=== PATIENT | female | born 1960 | race Caucasian/White ===

== ENCOUNTER → 2017-09-15 | Outpatient (CLI) | payer BC ==
--- NOTE | 2017-09-16 13:44 | MM ---
Reason for exam: screening (asymptomatic). Last mammogram was performed 1 year and 8 months ago. History: Patient is postmenopausal. Physical Findings: A clinical breast exam by your physician is recommended on an annual basis and results should be correlated with mammographic findings. MG Screening Mammo w CAD Bilateral CC and MLO view(s) were taken. Prior study comparison: January 31, 2016, bilateral MG screening mammo w CAD. January 25, 2015, bilateral MG screening mammo w CAD. The breast tissue is heterogeneously dense. This may lower the sensitivity of mammography. A couple focal asymmetries centrally left breast and laterally appear more defined. ASSESSMENT: Incomplete: need additional imaging evaluation, BI-RAD 0 RECOMMENDATION: Special view mammogram of the left breast. If lesion persists on supplemental views, image directed ultrasound is recommended. [facility] will attempt to contact patient to return for supplemental views and ultrasound if indicated.
== END | disposition home or self-care (01) ==
LOC: RADMAMWWP 14:39
PROVIDERS: ATTEND Family Medicine
DX: Z12.31 Encounter for screening mammogram for malignant neoplasm of breast (principal)
CPT/HCPCS: 77067

== ENCOUNTER → 2017-10-29 | Outpatient (CLI) | payer BC ==
--- NOTE | 2017-10-29 14:32 | MM ---
Reason for exam: additional evaluation requested from abnormal screening. Last mammogram was performed 1 month ago. History: Patient is postmenopausal. Physical Findings: Nurse did not find any significant physical abnormalities on exam. MG Work Up Mamm w CAD LT Spot compression CC, spot compression MLO, and LM view(s) were taken of the left breast. Prior study comparison: September 15, 2017, bilateral MG screening mammo w CAD. January 31, 2016, bilateral MG screening mammo w CAD. The breast tissue is heterogeneously dense. This may lower the sensitivity of mammography. Tissue disperses on compression. There may be some underlying chronic nodularity. These results were verbally communicated with the patient and result sheet given to the patient on 10/29/17. ASSESSMENT: Probably benign, BI-RAD 3 RECOMMENDATION: Follow-up diagnostic mammogram of the left breast in 6 months.
== END | disposition home or self-care (01) ==
LOC: RADMAMWWP 09:36
PROVIDERS: ATTEND Family Medicine
DX: R92.8 Other abnormal and inconclusive findings on diagnostic imaging of breast (principal)
CPT/HCPCS: 77065

== ENCOUNTER → 2018-09-20 | Outpatient (CLI) | payer BC ==
--- NOTE | 2018-09-21 10:16 | MM ---
Reason for exam: additional evaluation requested from prior study. Last mammogram was performed 11 months ago. History: Patient is postmenopausal. Physical Findings: Nurse did not find any significant physical abnormalities on exam. MG 3D Diag Mammo W/Cad KENDRA Bilateral CC and MLO view(s) were taken. Prior study comparison: October 29, 2017, left breast MG work up mamm w CAD LT. September 15, 2017, bilateral MG screening mammo w CAD. The breast tissue is heterogeneously dense. This may lower the sensitivity of mammography. No significant new finding when compared with prior studies. ASSESSMENT: Benign, BI-RAD 2 RECOMMENDATION: Routine screening mammogram of both breasts in 1 year.
== END | disposition home or self-care (01) ==
LOC: RADMAMWWP 13:06
PROVIDERS: ATTEND Family Medicine
DX: R92.8 Other abnormal and inconclusive findings on diagnostic imaging of breast (principal)
CPT/HCPCS: 77062; 77066

== ENCOUNTER → 2020-12-24 | Outpatient (CLI) | payer BC ==
--- NOTE | 2020-12-24 16:08 | BD ---
EXAMINATION TYPE: Axial Bone Density DATE OF EXAM: 12/24/2020 COMPARISON: NONE CLINICAL HISTORY: Z78.0 POST MENOPAUSAL Height: 5 FT 5 IN Weight: 155 FRAX RISK QUESTIONS: Alcohol (3 or more units per day): NO Family History (Parent hip fracture): NO Glucocorticoids (More than 3mos): NO (Ex: prednisone, prednisolone, methylprednisolone, dexamethasone, and hydrocortisone). History of Fracture in Adulthood: NO Secondary Osteoporosis: 1. Type 1 Diabetes: NO 2. Hyperthyroidism: NO 3. Menopause before 45: AROUND [age] 4. Malnutrition: NO 5. Chronic liver disease: NO Rheumatoid Arthritis: NOT DIAGNOSED Current Tobacco Use: NO RISK FACTORS HISTORY OF: Surgery to Spine/Hip(right/left)/Wrist (right/left): NO Family History of Osteoporosis: NO Active: YES Diet low in dairy products/other sources of calcium: NO Postmenopausal woman: AGE 41-44 Take estrogen and/or progesterone medications: NO Lost more than 2 inches in height since high school: YES MEDICATIONS: Additional Medications: BLOOD PRESSURE MEDS, SIMVASTATAN, Additional History: EXAM MEASUREMENTS: Bone mineral densitometry was performed using the [employer] System. Bone mineral density as measured about the Lumbar spine is: ----- L1-L4(G/cm2): 1.005 T Score Values are as follows: ----- L2: -1.5 ----- L3: -1.3 ----- L4: -1.3 ----- L1-L4: -1.5 Bone mineral density has: DECREASED -2.9 % since study of: 2012 Bone mineral density about the R hip (g/cm2): 0.731 Bone mineral density about the L hip (g/cm2): 0.770 T Score values are as follows: -----R Neck: -2.2 -----L Neck: -1.9 -----R Total: -1.6 -----L Total: -1.2 Bone mineral density has: DECREASED -5.7 % since study of: 2012 IMPRESSION: Osteopenia (T Score between -2.5 and -1). There is slightly increased risk of fracture and the patient may be considered for treatment. Re-Screen 2-5 years. NOTE: T-SCORE=SD OF THE YOUNG ADULT MEAN.
--- NOTE | 2020-12-26 10:34 | MM ---
Reason for exam: screening (asymptomatic). Last mammogram was performed 2 years and 3 months ago. History: Patient is postmenopausal. Physical Findings: A clinical breast exam by your physician is recommended on an annual basis and results should be correlated with mammographic findings. MG Screening Mammo w CAD Bilateral CC and MLO view(s) were taken. Prior study comparison: September 20, 2018, bilateral MG 3d diag mammo w/cad KENDRA. September 15, 2017, bilateral MG screening mammo w CAD. The breast tissue is heterogeneously dense. This may lower the sensitivity of mammography. Finding: There are fine, grouped/clustered calcifications in the 12 o'clock anterior position of the left breast. There is a chronic nodularity bilaterally. New finding since September 20, 2018 and September 15, 2017. ASSESSMENT: Incomplete: need additional imaging evaluation, BI-RAD 0 RECOMMENDATION: Special view mammogram of the left breast. [facility] will attempt to contact patient to return for supplemental views.
== END | disposition home or self-care (01) ==
LOC: RADMAMWWP 12:37
PROVIDERS: ATTEND Family Medicine
DX: Z12.31 Encounter for screening mammogram for malignant neoplasm of breast (principal); M85.89 Other specified disorders of bone density and structure, multiple sites; Z78.0 Asymptomatic menopausal state
CPT/HCPCS: 77067; 77080

== ENCOUNTER → 2021-01-15 | Outpatient (CLI) | payer BC ==
--- NOTE | 2021-01-16 09:45 | MM ---
Reason for exam: additional evaluation requested from abnormal screening. Last mammogram was performed 1 month ago. History: Patient is postmenopausal. Physical Findings: Nurse did not find any significant physical abnormalities on exam. MG Work Up Mamm w CAD LT CC with magnification, LM with magnification, and LM view(s) were taken of the left breast. Prior study comparison: December 24, 2020, bilateral MG screening mammo w CAD. September 20, 2018, bilateral MG 3d diag mammo w/cad KENDRA. Indeterminate calcifications adjacent to a large calcification upper central left breast. These results were verbally communicated with the patient and result sheet given to the patient on 01/15/21. ASSESSMENT: Suspicious, BI-RAD 4 RECOMMENDATION: Stereotactic core biopsy of the left breast. Called office with mammographic findings and has scheduled an appointment for the patient for 03/15/21 at 10:[address] Mosley. Biopsy scheduled for 03/28/21 at 8:00. PRELIMINARY REPORT CALLED AND FAXED TO DR. MOSLEY ON 01/16/21.
== END | disposition home or self-care (01) ==
LOC: RADMAMWWP 10:26
PROVIDERS: ATTEND Family Medicine
DX: R92.1 Mammographic calcification found on diagnostic imaging of breast (principal)
CPT/HCPCS: 77065

== ENCOUNTER → 2021-03-15 | Outpatient (CLI) | payer BC ==
[2021-03-15 10:21] VITALS: BP 129/86; PULSE 89; RESP 16; TEMP 98.1
--- NOTE | 2021-03-15 10:56 | P.GSHP ---
History of Present Illness H&P Date: 03/15/21 Chief Complaint: abnormal left breast mammogram Rosaline is a 60 year old white female seen in consultation for Dr. Frost with a mammographic abnormality of her left breast. She had a bilateral screening mammogram on , this revealed an area of fine group calcific ations in the 12 o'clock position of the left breast. She had a diagnostic mammogram then performed on 1120 321. This revealed indeterminate calcifications adjacent to a large calcification upper central left breast. She does not feel anything of concern in either breast. Has not had any surgery,,, or infection in either breast. She is not complaining of any nipple discharge or skin changes. Caffeine: 2 cups coffee/day nicotine: second hand smoke, not smoke in the house chocolate: occasional BCP: 2 years, stopped 40 years ago hormones: none Family history: maternal grandfather: colon cancer father: skin cancer Hormonal History: menarche: 12 , age at first : 21, breast fed: yes menopause: 46 BCP: 2 years in past hormones: none Surgical History: angioplasty ( baby aspirin daily) Medical History: anxiety coronary artery disease HTN Social History: nicotine: none alcohol: beer weekly drugs: none - Constitutional Constitutional: Reports sweats, Denies chills - EENT Eyes: bilateral dry eye, denies blurred vision, denies pain Ears: bilateral: tinnitus, deny: decreased hearing Ears, nose, mouth and throat: Denies headache, Denies sore throat - Breasts Breasts: bilateral: as per HPI - Cardiovascular Comment: See bus boy every 6 months Cardiovascular: Reports as per HPI, Denies chest pain, Denies shortness of breath - Respiratory Respiratory: Reports cough - Gastrointestinal Gastrointestinal: Denies abdominal pain, Denies diarrhea, Denies nausea, Denies vomiting - Genitourinary (Female) Genitourinary: Denies dysuria, Denies hematuria - Menstruation Menstruation: Reports postmenopausal - Musculoskeletal Comment: back pain - Integumentary Integumentary: Denies pruritus, Denies rash - Neurological Neurological: Reports numbness, Denies weakness - Psychiatric Psychiatric: Reports anxiety - Endocrine Endocrine: Denies fatigue, Denies weight change - Hematologic/Lymphatic Hematologic/Lymphatic: Reports as per HPI - Allergic/Immunologic Allergic/Immunologic: Reports as per HPI Past Medical History Past Medical History: Hyperlipidemia, Hypertension History of Any Multi-Drug Resistant Organisms: None Reported Past Surgical History: Heart Catheterization Additional Past Surgical History / Comment(s): angioplasty-2016 Past Anesthesia/Blood Transfusion Reactions: No Reported Reaction Past Psychological History: Anxiety, Depression Smoking Status: Former smoker Past Alcohol Use History: Daily Past Drug Use History: None Reported Medications and Allergies Home Medications Medication Instructions Recorded Confirmed Type ALPRAZolam [Xanax] 0.25 mg PO DIRECTED PRN 03/28/15 03/15/21 History Benazepril HCl 40 mg PO DAILY 03/28/15 04/01/15 History Multivitamins, Thera [Multivitamin] 1 tab PO DAILY 03/28/15 03/15/21 History Simvastatin [Zocor] 20 mg PO DAILY 03/28/15 03/15/21 History Aspirin 81 mg PO DAILY 03/15/21 03/15/21 History Atenolol/Chlorthalidone 1 tab PO DAILY 03/15/21 03/15/21 History [Atenolol/Chlorthalidone 50-25] Benazepril HCl 40 mg PO DAILY 03/15/21 03/15/21 History [place]-3 Fatty Acids [[place]-3] 1,000 mg PO DAILY 03/15/21 03/15/21 History Vit C/E/Zn/Coppr/Lutein/Zeaxan 1 cap PO DAILY 03/15/21 03/15/21 History [Preservision Areds 2 Softgel] Allergies Allergy/AdvReac Type Severity Reaction Status Date / Time No Known Allergies Allergy Verified 03/15/21 10:08 Surgical - Exam Vital Signs Temp Pulse Resp BP 98.1 F 89 16 129/86 03/15/21 10:15 03/15/21 10:15 03/15/21 10:15 03/15/21 10:15 BMI 24.5 - General no distress - Eyes normal ocular movement - Neck trachea midline - Respiratory normal respiratory effort, clear to auscultation - Cardiovascular Rhythm: regular Heart Sounds: normal: S1, S2 - Abdomen Abdomen: soft - Integumentary normal turgor - Neurologic no disoriented, no combative - Musculoskeletal normal gait - Psychiatric oriented to time, oriented to person, oriented to place, speech is normal, memory intact Breast Exam: BRA: 38B inspection: Bilateral grade 2/3 ptosis Palpation: Right breast: Multiple positional exam fibrocystic changes no dominant masses or nodules of concern Axilla: No adenopathy of concern Left breast: Multi-positional exam fibrocystic changes no dominant masses or nodules of concern Left axilla: No adenopathy of concern Results Mammogram reviewed with Dr. Dang from radiology Assessment and Plan Assessment: Impression: Fibrocystic breast changes Radiographic abnormality left breast Hypertension Coronary artery disease follows with cardiology Plan: Left breast sterotactic core biopsy stop aspirin as per cardiology Risk of the procedure discussed with the patient and her . Risks include but are not limited to bleeding, infection, reaction to the anesthetic. If the area biopsied is discordant and further biopsy may be recommended. Alternatives such as watchful waiting or resection the operating room or noted but not recommended. The patient and her understand. She wishes to proceed. This will be done in the near future. CC: Laurita Vargas
== END ==
LOC: WWCWWP 09:46
PROVIDERS: ATTEND Surgery
DX: N60.12 Diffuse cystic mastopathy of left breast (principal); I10 Essential (primary) hypertension; I25.10 Atherosclerotic heart disease of native coronary artery without angina pectoris; F41.9 Anxiety disorder, unspecified; E78.5 Hyperlipidemia, unspecified; F32.A Depression, unspecified; Z87.891 Personal history of nicotine dependence; Z79.899 Other long term (current) drug therapy; Z79.82 Long term (current) use of aspirin

== ENCOUNTER → 2021-03-21 | Day surgery (SDC) | payer BC ==
[2021-03-21 08:51] VITALS: BP 130/81; PULSE 54; RESP 18; TEMP 97.9
--- NOTE | 2021-03-21 09:06 | P.PCN ---
Date of Procedure: 03/21/21 Preoperative Diagnosis: Calcifications of concern left breast Postoperative Diagnosis: Same Procedure(s) Performed: Left breast stereotactic core biopsy Anesthesia: local Surgeon: Ana Mosley Pathology: other (Breast tissue with microcalcifications noted in specimen) Condition: stable Disposition: same day Indications for Procedure: Microcalcifications of concern left breast Operative Findings: Radiographic of specimen reveals microcalcifications of concern Description of Procedure: The patient is a 60-year-old white female who presented with a mammogram showing microcalcifications of concern in the left breast. This is in the midportion of the breast. Stereotactic core biopsy was recommended. Risks and benefits of the procedure were discussed with the patient. She understood and wished to proceed. Alternatives such as watchful waiting or resection in the operating room were considered but not recommended. The patient was taken to the stereotactic core biopsy room. She was positioned prone on the low rad table. A caser in film was obtained. The lesion was targeted. The area of concern was identified. A lateral to medial approach was utilized. The breast was prepped using Betadine. A 9-gauge vacuum-assisted core rotating biopsy needle was driven to the correct coordinates. A prefire film was obtained. The needle was noted to be in the correct location. The needle was fired. Post-fire film was obtained. The needle was noted to be in the correct location. 14 core biopsy specimens were obtained. Radiograph of the specimen revealed the area of concern had been adequately sampled. The microcalcifications of concern were noted to be in the specimen. The area was lavaged. A secure marked top hat clip was placed. The clip was noted to be in the correct location. The patient tolerated the procedure in stable condition. The specimen was sent to pathology. The patient will follow-up with Dr. Mccray next week.
--- NOTE | 2021-03-21 10:11 | MM ---
The patient is a 60-year-old white female who presented with a mammogram showing microcalcifications of concern in the left breast. This is in the midportion of the breast. Stereotactic core biopsy was recommended. Risks and benefits of the procedure were discussed with the patient. She understood and wished to proceed. Alternatives such as watchful waiting or resection in the operating room were considered but not recommended. The patient was taken to the stereotactic core biopsy room. She was positioned prone on the lo-rad table. A mining teacher film was obtained. The lesion was targeted. The area of concern was identified. A lateral to medial approach was utilized. The breast was prepped using Betadine. A 9-gauge vacuum-assisted core rotating biopsy needle was driven to the correct coordinates. A prefire film was obtained. The needle was noted to be in the correct location. The needle was fired. Post-fire film was obtained. The needle was noted to be in the correct location. 14 core biopsy specimens were obtained. Radiograph of the specimen revealed the area of concern had been adequately sampled. The microcalcifications of concern were noted to be in the specimen. The area was lavaged. A secure marked top hat clip was placed. The clip was noted to be in the correct location. The patient tolerated the procedure in stable condition. The specimen was sent to pathology. The patient will follow-up with Dr. Mccray next week. ALO
== END ==
LOC: RADMAMWWP 07:20
PROVIDERS: ATTEND Surgery
DX: R92.8 Other abnormal and inconclusive findings on diagnostic imaging of breast (principal); C50.912 Malignant neoplasm of unspecified site of left female breast; Z17.0 Estrogen receptor positive status [ER+]; N62 Hypertrophy of breast; R92.1 Mammographic calcification found on diagnostic imaging of breast
CPT/HCPCS: 88305; 88342; 88341; 19081; A4648; J2001

== ENCOUNTER → 2021-03-28 | Outpatient (CLI) | payer BC ==
[2021-03-28 13:45] VITALS: BP 144/91; PULSE 62; RESP 18; TEMP 98.1
--- NOTE | 2021-03-28 14:10 | P.PN ---
Subjective Progress Note Date: 03/28/21 Principal diagnosis: Invasive ductal carcinoma left breast Rosaline is a 60-year-old white female status post a sterotactic core biopsy of the left breast and 120 722. Pathology revealed an invasive ductal carcinoma ER/CO positive HER-2/miguel negative G1, size is questionable based on the microcalcifications noted and reviewed with Dr. Looney today. There is no evidence of shankar or metastatic disease. She tolerated the procedure with no difficulty. She is here with her today. Objective - Vital Signs Vital signs: Vital Signs Temp 98.1 F 03/28/21 13:40 Pulse 62 03/28/21 13:40 Resp 18 03/28/21 13:40 BP 144/91 03/28/21 13:40 Pulse Ox Intake & Output 03/27/21 03/28/21 03/28/21 18:59 06:59 18:59 Weight 68.946 kg - Constitutional General appearance: Present: cooperative - EENT Eyes: Present: EOMI ENT: Present: hearing grossly normal - Neck Neck: Present: normal ROM - Respiratory Respiratory: bilateral: CTA - Cardiovascular Rhythm: regular Heart sounds: normal: S1, S2 - Integumentary Integumentary: Present: normal turgor - Musculoskeletal Musculoskeletal: Present: gait normal - Psychiatric Psychiatric: Present: A&O x's 3, appropriate affect, intact judgment & insight - Additional findings Additional findings: Breast examination: Left breast mild ecchymosis from recent procedure no evidence of hematoma or infection Assessment and Plan Assessment: Impression: 1. Left breast invasive ductal carcinoma Plan: 1. Bilateral breast MRI 2. Oncotype 3. Present patient at tumor board 4. Appointment with medical oncology 4. Follow up here in 2 weeks CC: Dr. Solis
== END ==
LOC: WWCWWP 13:27
PROVIDERS: ATTEND Surgery
DX: C50.912 Malignant neoplasm of unspecified site of left female breast (principal); Z87.891 Personal history of nicotine dependence

== ENCOUNTER → 2021-04-19 | Outpatient (CLI) | payer BC ==
--- NOTE | 2021-04-22 06:49 | BMR ---
EXAMINATION TYPE: MR breast BILAT wo/w con DATE OF EXAM: 04/19/2021 COMPARISON: Bilateral breast screening mammogram December 24, 2020 BI-RADS 0. Diagnostic left breast m ammogram workup January 15, 2021 BI-RADS 4. HISTORY: Stereotactic guided core biopsy left breast March 21, 2021 well-differentiated ductal carc inoma grade 1 and low-grade DCIS. TECHNIQUE: A series of fat and water weighted images in the long and short axis views of both breasts are obtained in conjunction with dynamic contrast MRI with subtraction technique. The patient was i njected with 7 mL intravenous Gadavist gadolinium contrast. Three-dimensional and additional postpr ocessing imaging is created on independent workstation and reviewed during official interpretation of this study. FINDINGS: Heterogeneously dense fibroglandular tissue is redemonstrated bilaterally. No suspicious ax illary adenopathy identified. There are a few tiny thin-walled cysts scattered fibroglandular tissue in both breasts slightly more numerous on the right breast. Dynamic imaging shows moderate background enhancement with nodularity again evaluation slightly suboptimal. Delayed dynamic imaging shows no s uspicious internal mammary adenopathy. With regards to the right breast. Areas of nodular enhancement measure under 5 mm with benign dynamic postprocessing appear showing gradual enhancement. No pathologic enhancement or enhancing masses. No abnormal skin thickening. Chest wall is intact. With regards to the left breast. There is susceptibility artifact from biopsy clip noted seen best im age 855 series 701 12:00 position anterior to middle depth. Small adjacent area of enhancement along the medial aspect of clip measures up to 5 mm long axis with some areas of rapid uptake and washout. Smaller nodular areas of enhancement show benign patterns on dynamic postcontrast imaging. No additio nal pathologic enhancement or enhancing masses. No abnormal skin thickening. The chest wall is intact . There are fairly large exophytic thin-walled cyst from the upper pole right kidney partially imaged on the inferior most axial images, correlate clinically. Occasional thin-walled cysts throughout the liver reveals all present. For reference anterior left hepatic lobe 1.9 x 1.4 cm thin-walled cyst cor onal image 37. IMPRESSION: Small area of enhancement at site of biopsy clip corresponds to biopsy-proven malignancy. No convincing MRI evidence for invasive malignancy in either breast otherwise. Suboptimal study due to background nodular glandular enhancement. BI-RADS 6 biopsy-proven cancer left breast. BI-RADS 2 benign Findings right breast Recommendation: Appropriate surgical and oncologic management of newly diagnosed left breast malignan cy.
== END | disposition home or self-care (01) ==
LOC: RADMRIMAIN 08:03
PROVIDERS: ATTEND Surgery
DX: C50.912 Malignant neoplasm of unspecified site of left female breast (principal)
CPT/HCPCS: 77049; C8937; A9585

== ENCOUNTER → 2021-04-26 | Outpatient (CLI) | payer BC ==
[2021-04-26 09:04] VITALS: BP 163/89; PULSE 66; RESP 17; TEMP 98.1
--- NOTE | 2021-04-26 09:57 | P.PN ---
Subjective Progress Note Date: 04/26/21 Principal diagnosis: left breast invasive ductal cancer Rosaline is a 60 year old white female seen in consultation for Dr. Frost with a mammographic abnormality of her left breast. She had a bilateral screening mammogram on , this revealed an area of fine group calc ifications in the 12 o'clock position of the left breast. She had a diagnostic mammogram then performed on [id number]. This revealed indeterminate calcifications adjacent to a large calcification upper central left breast. She does not feel anything of concern in either breast. Has not had any surgery,,, or infection in either breast. She was not complaining of any nipple discharge or skin changes. She underwent a sterotactic core biopsy on 03-21-21 which was positive for G1 invasive ductal carcinoma [id number]- and low grade DCIS A bilateral MRI was done on 04-19-21 which did not show any lesions in the right breast and no further lesions in the left breast other than that which was biopsied Seen by medical oncology on 04-17-21 they did not recommend chemotherapy based on low oncotype oncotype 04-09-21 score 0 Case presented at tumor board on 04-23-21 and patient felt ready for surgery Caffeine: 2 cups coffee/day nicotine: second hand smoke, not smoke in the house chocolate: occasional BCP: 2 years, stopped 40 years ago hormones: none Family history: maternal grandfather: colon cancer father: skin cancer Hormonal History: menarche: 12 , age at first : 21, breast fed: yes menopause: 46 BCP: 2 years in past hormones: none Surgical History: angioplasty ( baby aspirin daily) Medical History: anxiety coronary artery disease HTN Social History: nicotine: none alcohol: beer weekly drugs: none - Constitutional Constitutional: Reports sweats, Denies chills - EENT Eyes: bilateral dry eye, denies blurred vision, denies pain Ears: bilateral: tinnitus, deny: decreased hearing Ears, nose, mouth and throat: Denies headache, Denies sore throat - Breasts Breasts: bilateral: as per HPI - Cardiovascular Comment: See sample clerk every 6 months Cardiovascular: Reports as per HPI, Denies chest pain, Denies shortness of breath - Respiratory Respiratory: Reports cough - Gastrointestinal Gastrointestinal: Denies abdominal pain, Denies diarrhea, Denies nausea, Denies vomiting - Genitourinary (Female) Genitourinary: Denies dysuria, Denies hematuria - Menstruation Menstruation: Reports postmenopausal - Musculoskeletal Comment: back pain - Integumentary Integumentary: Denies pruritus, Denies rash - Neurological Neurological: Reports numbness, Denies weakness - Psychiatric Psychiatric: Reports anxiety - Endocrine Endocrine: Denies fatigue, Denies weight change - Hematologic/Lymphatic Hematologic/Lymphatic: Reports as per HPI - Allergic/Immunologic Allergic/Immunologic: Reports as per HPI Past Medical History Past Medical History: Hyperlipidemia, Hypertension History of Any Multi-Drug Resistant Organisms: None Reported Past Surgical History: Heart Catheterization Additional Past Surgical History / Comment(s): angioplasty-2016 Past Anesthesia/Blood Transfusion Reactions: No Reported Reaction Past Psychological History: Anxiety, Depression Smoking Status: Former smoker Past Alcohol Use History: Daily Past Drug Use History: None Reported Medications and Allergies Home Medications Medication Instructions Recorded Confirmed Type ALPRAZolam [Xanax] 0.25 mg PO DIRECTED PRN 03/28/15 03/15/21 History Benazepril HCl 40 mg PO DAILY 03/28/15 04/01/15 History Multivitamins, Thera [Multivitamin] 1 tab PO DAILY 03/28/15 03/15/21 History Simvastatin [Zocor] 20 mg PO DAILY 03/28/15 03/15/21 History Aspirin 81 mg PO DAILY 03/15/21 03/15/21 History Atenolol/Chlorthalidone 1 tab PO DAILY 03/15/21 03/15/21 History [Atenolol/Chlorthalidone 50-25] Benazepril HCl 40 mg PO DAILY 03/15/21 03/15/21 History [place]-3 Fatty Acids [[place]-3] 1,000 mg PO DAILY 03/15/21 03/15/21 History Vit C/E/Zn/Coppr/Lutein/Zeaxan 1 cap PO DAILY 03/15/21 03/15/21 History [Preservision Areds 2 Softgel] Objective - Vital Signs Vital signs: Vital Signs Temp 98.1 F 04/26/21 09:02 Pulse 66 04/26/21 09:02 Resp 17 04/26/21 09:02 BP 163/89 04/26/21 09:02 Pulse Ox 94 L 04/26/21 09:02 Intake & Output 04/25/21 04/26/21 04/26/21 18:59 06:59 18:59 Weight 72.121 kg - Exam BMI 25.7 - Constitutional General appearance: Present: cooperative - EENT Eyes: Present: EOMI ENT: Present: hearing grossly normal - Neck Neck: Present: normal ROM - Respiratory Respiratory: bilateral: CTA - Cardiovascular Rhythm: regular Heart sounds: normal: S1, S2 - Gastrointestinal General gastrointestinal: Present: soft - Integumentary Integumentary: Present: normal turgor - Musculoskeletal Musculoskeletal: Present: gait normal - Psychiatric Psychiatric: Present: A&O x's 3, appropriate affect, intact judgment & insight - Additional findings Additional findings: Breast Exam: BRA: 38C inspection: grade 2-3 ptosis palpation: right breast: Positional exam no dominant masses or nodules of concern Right axilla: No adenopathy of concern Left breast: Transitional exam fibrocystic changes no dominant masses or nodules of concern Left axilla: No adenopathy of concern Assessment and Plan Assessment: Impression: Stage I left breast invasive ductal carcinoma Oncotype 0 Presentation of case at tumor board MRI reviewed Plan: Left breast needle localization excisional lumpectomy, onco-plastic tissue transfer, patient has does not want mastopexy incision, sentinel node injection left axilla, left sentinel node biopsy, possible left axillary node dissection cardiology clearance patient given pre-op surgical kit clearance DR. Conway CC: Dr. Conway Risks and benefits of the procedure have been discussed with the patient. Risks include but are not limited to bleeding, infection, reaction to the anesthetic. The patient understands and wishes to proceed. Additionally she understands th at if she were to have positive margins that is possible we would have to do a reexcision. Understands of the radiotracer does not travel to the axilla that blue dye would be injected.
== END ==
LOC: WWCWWP 08:47
PROVIDERS: ATTEND Surgery
DX: C50.912 Malignant neoplasm of unspecified site of left female breast (principal); F41.9 Anxiety disorder, unspecified; I25.10 Atherosclerotic heart disease of native coronary artery without angina pectoris; I10 Essential (primary) hypertension; E78.5 Hyperlipidemia, unspecified; F32.A Depression, unspecified; Z87.891 Personal history of nicotine dependence; Z79.899 Other long term (current) drug therapy

== ENCOUNTER 2021-06-11 07:47 | Day surgery (SDC) | payer BC ==
[2021-06-07 12:56] VITALS: BMI 25.7
[~2021-06-11 07:47] MED LIST: DEXAMETHASONE SOD PHOSPHATE 4 MG/ML 1 ML VIAL IV ONE; HEPARIN SODIUM,PORCINE/PF 5,000 UNIT/0.5 ML SYRINGE SQ PRN; HYDROmorphone 0.5 MG/0.5 ML SYRINGE IVP PRN; LACTATED RINGERS 1,000 ML IV SCH; LIDOCAINE 1% (10MG/ML) FOR IV START INTRADERMA PRN; METOCLOPRAMIDE 5 MG/ML 2 ML VIAL IVP PRN; ONDANSETRON 4 MG/2 ML VIAL IVP ONE; Pre Op ABX Message 1 EACH MISC MISCELLANE ONE
[2021-06-11] MEDS ORDERED: ALPRAZolam 0.25 MG TAB ONE (08:47)
[2021-06-11] MEDS ORDERED: LIDOCAINE 1% INJ 10MG/ML (20 ML MDV) SQ ONE ×4 (09:22→12:53)
--- NOTE | 2021-06-11 10:20 | P.NAPBC ---
NAPBC Queries - NAPBC Queries Was patient's case review presented at [facility] tumor board? If no, comment.: Yes Was patient's pathology reviewed at [facility]? If no, comment.: Yes Was breast conservation surgery offered? If no, comment.: Yes Was sentinel node biopsy offered? If no, comment.: Yes Was diagnosis confirmed by percutaneous core biopsy? If no, comment.: Yes Is patient mastectomy patient?: No Was a preop referral to reconstructive surgeon offered?: No Clinical Stage: stage IA invasive ductal cancer left breast
[2021-06-11] MEDS ORDERED: fentaNYL (PF) 50 MCG/ML 2 ML AMP ONE (10:51)
[2021-06-11] MEDS ORDERED: GLYCOPYRROLATE 0.2 MG/ML 2 ML VIAL ONE (10:51)
[2021-06-11] MEDS ORDERED: SUCCINYLCHOLINE CHLORIDE 100 MG/5 ML SYR IV ONE (10:51)
[2021-06-11] MEDS ORDERED: PROPOFOL 10 MG/ML 20 ML VIAL IV ONE (10:51)
[2021-06-11] MEDS ORDERED: PHENYLEPHRINE-0.9% NACL SYG 1,000 MCG/10 ML SYRINGE ONE (10:51)
[2021-06-11] MEDS ORDERED: ePHEDrine 50 MG/ML 1 ML VIAL ONE (10:51)
[2021-06-11] MEDS ORDERED: MIDAZOLAM 2 MG/2 ML VIAL ONE (10:51)
[2021-06-11] MEDS ORDERED: LIDOCAINE 1% INJ 10MG/ML (20 ML MDV) ONE (10:51)
[2021-06-11] MEDS ORDERED: SODIUM CHLORIDE 0.9% 100 ML with ceFAZolin 2,000 MG IV ONE ×2 (11:13)
--- NOTE | 2021-06-11 12:49 | P.OP ---
Date of Procedure: 06/11/21 Preoperative Diagnosis: Left breast invasive ductal carcinoma Postoperative Diagnosis: Same Procedure(s) Performed: Left breast needle localization lumpectomy, sentinel node excision, onco-plastic tissue transfer 57cm2 Anesthesia: PASCALEA Surgeon: Ana Mosley Estimated Blood Loss (ml): 15 IV fluids (ml): 500 Pathology: other (Breast tissue, sentinel lymph node) Condition: stable Disposition: same day Indications for Procedure: Left breast invasive ductal carcinoma Operative Findings: Fibrofatty breast tissue Description of Procedure: The patient is a 60-year-old white female diagnosed with an invasive ductal carcinoma the left breast. She has opted for lumpectomy and sentinel node biopsy. She was seen first by radiology where periareolar injection of radioactive tracer was placed. She was then brought to the operative suite. Following induction of anesthesia the Slick counter was used to identify radioactivity in the axilla. This was noted to be present. Therefore the left breast and axilla were prepped and draped in a sterile fashion. The area of the axilla was approached initially. Using the Slick counter to identify the area of greatest radioactivity incision was made in the axilla. Dissection was performed down into the deep axillary tissue the radioactive lymph node was identified. This was removed using the Harmonic scalpel. After assured that hemostasis was attained interrogation of the background reveal the background 10 second count of 20. The sentinel lymph node 10 second count was 1491. The deep tissues of the axilla were closed using 3-0 Vicryl suture. The skin was closed using 4-0 Monocryl. Following this the area of the breast was approached. An incision was made near the area of the shaft of the needle. This was dissected down to the needle. The tissue was grasped using an Allis clamp. Surrounding tissue was excised. The cavity of excision was 7 cm x 3 cm. The specimen was painted for orientation and radiographs revealed the area of concern about removed. Posterior dissection was on the pectoralis muscle. After assured that hemostasis was attained titanium clips were placed. The superior pillar which was 6 cm x 3 cm was formed and inferior pilar which was 6 cm x 3 cm was formed. Total tissue mobilization was 57 cm. The superior and inferior pillars were brought together using 3-0 Vicryl suture. This was followed by closure of the subcutaneous tissue with a 3-0 Vicryl suture. The skin was closed using 4-0 Monocryl. The patient tolerated the procedure in stable condition. All instrument and sponge counts were correct at the end of the case.
--- NOTE | 2021-06-11 12:53 | P.DS ---
Providers Attending physician: Ana Mosley Primary care physician: Ralph Frost Plan - Discharge Summary Discharge Rx Participant: No New Discharge Prescriptions: No Action Simvastatin [Zocor] 20 mg PO HS Multivitamins, Thera [Multivitamin] 1 tab PO DAILY Benazepril HCl 40 mg PO QAM ALPRAZolam [Xanax] 0.25 mg PO DIRECTED PRN PRN Reason: Anxiety [place]-3 Fatty Acids [[place]-3] 1,000 mg PO DAILY Atenolol/Chlorthalidone [Atenolol/Chlorthalidone 50-25] 1 tab PO QAM Aspirin 81 mg PO DAILY Discharge Medication List ALPRAZolam [Xanax] 0.25 mg PO DIRECTED PRN 03/28/15 [History] Benazepril HCl 40 mg PO QAM 03/28/15 [History] Multivitamins, Thera [Multivitamin] 1 tab PO DAILY 03/28/15 [History] Simvastatin [Zocor] 20 mg PO HS 03/28/15 [History] Aspirin 81 mg PO DAILY 03/15/21 [History] Atenolol/Chlorthalidone [Atenolol/Chlorthalidone 50-25] 1 tab PO QAM 03/15/21 [History] [place]-3 Fatty Acids [[place]-3] 1,000 mg PO DAILY 03/15/21 [History] Follow up Appointment(s)/Referral(s): Ana Mosley MD [STAFF PHYSICIAN] - 1 Week Activity/Diet/Wound Care/Special Instructions: may shower after 48 hours wear bra at all times do not drive for 24 hours after discharge Discharge Disposition: HOME SELF-CARE
[2021-06-11 13:09] VITALS: TEMP 97.6
[2021-06-11 14:05] VITALS: RESP 20
[2021-06-11] MEDS ORDERED: HYDROcodone/APAP 5-325MG 1 EACH TAB ONE (14:37)
[2021-06-11] MEDS ORDERED: HYDROcodone/APAP 5-325MG 1 EACH TAB PO ONE (14:38)
[2021-06-11 15:17] VITALS: BP 111/71; PULSE 60
--- NOTE | 2021-06-11 16:52 | MM ---
EXAMINATION TYPE: MG pre op needle loc LT DATE OF EXAM: 06/11/2021 COMPARISON: NONE CLINICAL HISTORY: Abnormal mammogram TECHNIQUE: Needle localization with wire placement and surgical excision of area of concern in the le ft breast. FINDINGS: The procedure of needle localization with wire placement for surgical excision was explaine d to the patient. Risk, benefits, and alternatives were discussed. An informed consent was then obt ained. A timeout was performed. The overlying skin was prepped and draped in usual sterile fashion. Lidocaine 1% was used as anesthe tic into the skin and subcutaneous tissue up to the level of area of concern. A 9 cm needle was used . This was placed via a superior approach under mammographic guidance. Subsequent 90 degrees mammog estela show the needle to be in satisfactory position relative to the targeted area. The wire was place d through the needle and the needle was withdrawn. The wire was fixed to patient's skin. Images wer e marked for surgeon. Images are reviewed surgeon prior to surgery. The patient tolerated the procedure well without any immediate complication. Specimen: The wire and the targeted marker are identified within the specimen mammogram. IMPRESSION: 1. Successful wire localization and excision. Recommendations: 1. Recommendations are pending pathology results.
--- NOTE | 2021-06-11 17:20 | NM ---
EXAMINATION TYPE: NM sentinel node injection DATE OF EXAM: 06/11/2021 COMPARISON: NONE INDICATION: Abnormal mammogram. Informed consent was obtained. A timeout was performed. The area around the left nipple was cleansed with alcohol. In a single dose, a total of 05/29/1989 uC i Technetium 99m Tilmanocept was injected. The patient tolerated the procedure very well. IMPRESSIONS: 1. Successful injection for sentinel node evaluation.
== END 2021-06-11 15:35 | disposition home or self-care (01) ==
LOC: OR 07:47
PROVIDERS: ATTEND Surgery
DX: C50.912 Malignant neoplasm of unspecified site of left female breast (principal); Z79.82 Long term (current) use of aspirin; Z79.899 Other long term (current) drug therapy; I10 Essential (primary) hypertension; I25.10 Atherosclerotic heart disease of native coronary artery without angina pectoris; E78.5 Hyperlipidemia, unspecified; F41.9 Anxiety disorder, unspecified; F32.A Depression, unspecified; K21.9 Gastro-esophageal reflux disease without esophagitis
CPT/HCPCS: 19301; 38525; 14301; 38900; 76098; 19281; 38792; C1819; A9520; J2250; J1100; J2405; J0690; J2001; J3010; J2370; J0330; J2704; J1644; 88307; 88342

== ENCOUNTER → 2021-06-20 | Outpatient (CLI) | payer BC ==
[2021-06-20 09:55] VITALS: BP 144/89; PULSE 58; RESP 17; TEMP 97.5
--- NOTE | 2021-06-20 10:03 | P.PN ---
Progress Note - Text Progress Note Date: 06/20/21 The patient is status post left breast [place]pect[place] [id number]. Pathology did not reveal any additional invasive cancer however did have low to intermediate grade DCIS. Margins were negative. The radiographs were reviewed with Dr. Rose which he believes that the area of invasive cancer was most likely removed with the stereo biopsy. The patient also had a sentinel node removed which was negative for cancer. She is doing well postoperatively. Physical exam: Incision axilla and breast clean and dry Plan: Follow-up medical oncology Follow-up radiation oncology Follow-up here in 4 months. CC: Dr. Frost; Laurita Villa
== END ==
LOC: WWCWWP 09:46
PROVIDERS: ATTEND Surgery
DX: C50.912 Malignant neoplasm of unspecified site of left female breast (principal); Z98.890 Other specified postprocedural states; Z87.891 Personal history of nicotine dependence

== ENCOUNTER → 2022-01-31 | Outpatient (CLI) | payer BC ==
--- NOTE | 2022-01-31 13:28 | MM ---
Reason for Exam: Follow-up at short interval from prior study. Last mammogram was performed 1 year(s) and 1 month(s) ago. Patient History: Menarche at age 13. First Full-Term at age 19. Postmenopausal. Breast cancer, age 60. 06/11/2021, Lumpectomy on the Left side. 06/11/2021, Malignant Core Biopsy on the left side. 03/21/2021, Malignant Core Biopsy on the left side. Prior Study Comparison: 01/25/2015 Bilateral Screening Mammogram, [facility]. 01/31/2016 Bilateral Screening Mammogram, [facility]. 09/15/2017 Bilateral Screening Mammogram, [facility]. 10/29/2017 Left Diagnostic Mammogram, [facility]. 09/20/2018 Bilateral Diagnostic Mammogram, [facility]. 12/24/2020 Bilateral Screening Mammogram, [facility]. 01/15/2021 Left Diagnostic Mammogram, [facility]. 04/19/2021 Bilateral Diagnostic Breast MRI, [facility]. Tissue Density: The breast tissue is heterogeneously dense. This may lower the sensitivity of mammography. Findings: Analyzed By CAD. Benign-appearing vascular calcification is redemonstrated bilaterally. Occasional scattered benign-appearing round calcifications bilaterally is again seen. Stable oval circumscribed 7 mm mass in the posterior right breast. New distortion and clips posteriorly in the left breast with new skin thickening consistent with interval posttreatment change. No obvious new mass or suspicious calcification seen. Overall Assessment: Probably benign, BI-RAD 3 Management: Diagnostic Mammogram of the left breast in 6 months. Precautionary short-term follow-up left breast mammogram to confirm new baseline. Results were given to the patient verbally at the time of exam. Electronically signed and approved by: Jaime Dang M.D.
[2022-01-31 13:49] VITALS: BP 120/80; PULSE 63; RESP 16; TEMP 98.1
--- NOTE | 2022-01-31 14:03 | P.PN ---
Subjective Progress Note Date: 01/31/22 Principal diagnosis: left breast stage IA invasive ductal cancer Stage IA invasive ductal left breast cancer, T1 N0 M0 ER/SC+HER-2-G1 Rosaline is a 60-year-old white female who is status post left breast lumpectomy and sentinel node biopsy on . 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 Margins were negative. Radiographs were reviewed with radiology who felt that the area of invasive cancer was most likely completely removed with stereo biopsy. Note 09-24-21 radiation oncology reviewed: She finished 42.56 charito on . Note medical oncology 08-21-21 reviewed: Patient is on Femora. Oncotype score: 0 Last bilateral mammogram in December 2020. She subsequently underwent additional workup of the left breast resulting in diagnosis of invasive ductal carcinoma. 01-31-22 bilateral mammogram 01-31-22 BIRAD 3 repeat left breast mammogram in 6 months to confirm post treatment stability Is not complaining of any new lumps masses or nodules of concern in either breast. She is taking Femora. Patient started on a new anxiety medication this week by Laurita Villa in Dr. Frost's office. Caffeine: 2 cups coffee/day nicotine: second hand smoke, not smoke in the house chocolate: occasional BCP: 2 years, stopped 40 years ago hormones: none Family history: maternal grandfather: colon cancer father: skin cancer Hormonal History: menarche: 12 , age at first : 21, breast fed: yes menopause: 46 BCP: 2 years in past hormones: none Surgical History: angioplasty ( baby aspirin daily) left breast lumpectomy and SNB Medical History: anxiety coronary artery disease HTN Social History: nicotine: none alcohol: beer weekly drugs: none - Constitutional Constitutional: Reports sweats, Denies chills - EENT Eyes: bilateral dry eye, denies blurred vision, denies pain Ears: bilateral: tinnitus, deny: decreased hearing Ears, nose, mouth and throat: Denies headache, Denies sore throat - Breasts Breasts: bilateral: as per HPI - Cardiovascular Comment: See human resources intern every 6 months Cardiovascular: Reports as per HPI, Denies chest pain, Denies shortness of breath - Respiratory Respiratory: Reports cough - Gastrointestinal Gastrointestinal: Denies abdominal pain, Denies diarrhea, Denies nausea, Denies vomiting - Genitourinary (Female) Genitourinary: Denies dysuria, Denies hematuria - Menstruation Menstruation: Reports postmenopausal - Musculoskeletal Comment: back pain - Integumentary Integumentary: Denies pruritus, Denies rash - Neurological Neurological: Reports numbness, Denies weakness - Psychiatric Psychiatric: Reports anxiety - Endocrine Endocrine: Denies fatigue, Denies weight change - Hematologic/Lymphatic Hematologic/Lymphatic: Reports as per HPI - Allergic/Immunologic Allergic/Immunologic: Reports as per HPI Objective - Vital Signs Vital signs: Vital Signs Temp 98.1 F 01/31/22 13:45 Pulse 63 01/31/22 13:45 Resp 16 01/31/22 13:45 BP 120/80 01/31/22 13:45 Pulse Ox 96 01/31/22 13:45 FiO2 Intake & Output 01/30/22 01/31/22 01/31/22 18:59 06:59 18:59 Weight 69.853 kg - Constitutional General appearance: Present: cooperative - EENT Eyes: Present: EOMI ENT: Present: hearing grossly normal - Neck Neck: Present: normal ROM - Respiratory Respiratory: bilateral: CTA - Cardiovascular Rhythm: regular Heart sounds: normal: S1, S2 - Integumentary Integumentary: Present: normal turgor - Musculoskeletal Musculoskeletal: Present: gait normal - Psychiatric Psychiatric: Present: A&O x's 3, appropriate affect, intact judgment & insight - Additional findings Additional findings: Breast Exam: BRA: 38B Inspection: Postop changes left breast; Palpation: Right breast: Multi-positional exam fibrocystic changes no dominant masses or nodules of concern; postop and post radiation changes noted Right axilla: No adenopathy of concern Left breast: Multiple positional exam fibrocystic changes no dominant masses or nodules of concern Left axilla no adenopathy of concern Assessment and Plan Assessment: Impression: anxiety coronary artery disease HTN Patient status post left breast lumpectomy for stage IA invasive ductal carcinoma, no evidence of recurrence Patient presently on Femara has completed radiation therapy Plan: Continue Femora left breast mammogram in 6 months follow up in 6 months; patient will be out of town in 4 months Continue to follow with medical and radiation oncology If patient feels anything of concern she will see me sooner Cc: Additional CC's: Ralph Frost
== END | disposition home or self-care (01) ==
LOC: RADMAMWWP 13:00
PROVIDERS: ATTEND Surgery
DX: R92.8 Other abnormal and inconclusive findings on diagnostic imaging of breast (principal); I10 Essential (primary) hypertension; Z85.3 Personal history of malignant neoplasm of breast; Z78.0 Asymptomatic menopausal state; Z79.82 Long term (current) use of aspirin; Z92.3 Personal history of irradiation
CPT/HCPCS: 77062; 77066

== ENCOUNTER → 2022-08-04 | Outpatient (CLI) | payer BC ==
--- NOTE | 2022-08-04 11:16 | MM ---
Reason for Exam: Follow-up at short interval from prior study. Last screening mammogram was performed 6 month(s) ago. Patient History: Menarche at age 13. First Full-Term at age 19. Postmenopausal. Breast cancer, left, age 60. Previous chest radiation therapy at age 60. 06/11/2021, Lumpectomy on the Left side. 06/11/2021, Malignant Core Biopsy on the left side. 03/21/2021, Malignant Core Biopsy on the left side. Prior Study Comparison: 12/24/2020 Bilateral Screening Mammogram, [facility]. 01/15/2021 Left Diagnostic Mammogram, [facility]. 01/31/2022 Bilateral MG 3D diag mammo w/cad KENDRA, [facility]. Tissue Density: Left: The breast tissue is heterogeneously dense. This may lower the sensitivity of mammography. Findings: Analyzed By CAD. Stable post lumpectomy changes left breast. Traumatic oil cyst unchanged. Vascular calcifications seen without suspicious cluster of microcalcifications. Overall Assessment: Benign, BI-RAD 2 Management: Diagnostic Mammogram of both breasts in 6 months. . Results were given to the patient verbally at the time of exam. Patient should continue monthly self-breast exams. A clinical breast exam by your physician is recommended on an annual basis. This exam should not preclude additional follow-up of suspicious palpable abnormalities. Note on Mary Carmen scores and lifetime risk: 1. A Mary Carmen score greater than 3% is considered moderate risk. If this is the case, consider specialist referral to assess eligibility for a risk reducing agent. 2. If overall lifetime risk for the development of breast cancer is 20% or higher, the patient may qualify for future screening with alternating mammogram and breast MRI. Electronically signed and approved by: Aron Singh M.D. Radiologis
== END | disposition home or self-care (01) ==
LOC: RADMAMWWP 09:32
PROVIDERS: ATTEND Surgery
DX: Z78.0 Asymptomatic menopausal state (principal); Z85.3 Personal history of malignant neoplasm of breast
CPT/HCPCS: 77061; 77065

== ENCOUNTER → 2022-09-05 | Outpatient (CLI) | payer BC ==
[2022-09-05 08:14] VITALS: BP 142/88; PULSE 59; RESP 16; TEMP 97.6
--- NOTE | 2022-09-05 08:23 | P.PN ---
Subjective Progress Note Date: 09/05/22 Principal diagnosis: left breast stage I invasive ductal cancer, 06-11-2021 Stage IA invasive ductal left breast cancer, T1 N0 M0 ER/MD+HER-2-G1 Rosaline is a 60-year-old white female who is status post left breast lumpectomy and sentinel node biopsy on . 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 Margins were negative. Radiographs were reviewed with radiology who felt that the area of invasive cancer was most likely completely removed with stereo biopsy. radiation oncology reviewed: She finished 42.56 charito on . Patient is on Femora. Oncotype score: 0 bilateral mammogram 01-31-22 BIRAD 3 repeat left breast mammogram in 6 months to confirm post treatment stability left breast mammogram on 08-04-22 BIRAD 2 Is not complaining of any new lumps masses or nodules of concern in either breast. She is taking Femora. Patient started on a new anxiety medication this week by Laurita Villa in Dr. Frost's office. Caffeine: 2 cups coffee/day nicotine: second hand smoke, not smoke in the house chocolate: occasional BCP: 2 years, stopped 40 years ago hormones: none Family history: maternal grandfather: colon cancer father: skin cancer Hormonal History: menarche: 12 , age at first : 21, breast fed: yes menopause: 46 BCP: 2 years in past hormones: none Surgical History: angioplasty ( baby aspirin daily) left breast lumpectomy and SNB Medical History: anxiety coronary artery disease HTN Social History: nicotine: none alcohol: beer weekly drugs: none - Constitutional Constitutional: Reports sweats, Denies chills - EENT Eyes: bilateral dry eye, denies blurred vision, denies pain Ears: bilateral: tinnitus, deny: decreased hearing Ears, nose, mouth and throat: Denies headache, Denies sore throat - Breasts Breasts: bilateral: as per HPI - Cardiovascular Comment: See garage attendant every 6 months Cardiovascular: Reports as per HPI, Denies chest pain, Denies shortness of breath - Respiratory Respiratory: Reports cough - Gastrointestinal Gastrointestinal: Denies abdominal pain, Denies diarrhea, Denies nausea, Denies vomiting - Genitourinary (Female) Genitourinary: Denies dysuria, Denies hematuria - Menstruation Menstruation: Reports postmenopausal - Musculoskeletal Comment: back pain - Integumentary Integumentary: Denies pruritus, Denies rash - Neurological Neurological: Reports numbness, Denies weakness - Psychiatric Psychiatric: Reports anxiety - Endocrine Endocrine: Denies fatigue, Denies weight change - Hematologic/Lymphatic Hematologic/Lymphatic: Reports as per HPI - Allergic/Immunologic Allergic/Immunologic: Reports as per HPI Objective - Vital Signs Vital signs: Vital Signs Temp 97.6 F 09/05/22 08:11 Pulse 59 L 09/05/22 08:11 Resp 16 09/05/22 08:11 BP 142/88 09/05/22 08:11 Pulse Ox 97 09/05/22 08:11 FiO2 Intake & Output 09/04/22 09/05/22 09/05/22 18:59 06:59 18:59 Weight 70.307 kg - Constitutional General appearance: Present: cooperative - EENT Eyes: Present: EOMI ENT: Present: hearing grossly normal - Neck Neck: Present: normal ROM - Respiratory Respiratory: bilateral: CTA - Cardiovascular Rhythm: regular Heart sounds: normal: S1, S2 - Integumentary Integumentary: Present: normal turgor - Musculoskeletal Musculoskeletal: Present: gait normal - Psychiatric Psychiatric: Present: A&O x's 3, appropriate affect, intact judgment & insight - Additional findings Additional findings: Breast Exam: BRA: 38B Inspection: Postop changes left breast; Palpation: Right breast: Multi-positional exam fibrocystic changes no dominant masses or nodules of concern; postop and post radiation changes noted Right axilla: No adenopathy of concern Left breast: Multiple positional exam fibrocystic changes no dominant masses or nodules of concern Left axilla no adenopathy of concern Assessment and Plan Assessment: Impression: anxiety coronary artery disease HTN Patient status post left breast lumpectomy for stage IA invasive ductal carcinoma, no evidence of recurrence Patient presently on Femara has completed radiation therapy Plan: Continue Femora bilateral mammogram in 6 months follow up after mammogram Continue to follow with medical and radiation oncology If patient feels anything of concern she will see me sooner Cc:
== END ==
LOC: WWCWWP 07:55
PROVIDERS: ATTEND Surgery
DX: Z12.31 Encounter for screening mammogram for malignant neoplasm of breast (principal); C50.912 Malignant neoplasm of unspecified site of left female breast; F41.9 Anxiety disorder, unspecified; I10 Essential (primary) hypertension; I25.10 Atherosclerotic heart disease of native coronary artery without angina pectoris; Z79.811 Long term (current) use of aromatase inhibitors; Z92.3 Personal history of irradiation; Z87.891 Personal history of nicotine dependence

== ENCOUNTER 2022-10-01 06:43 | Day surgery (SDC) | payer BC ==
[2022-09-25 11:07] VITALS: BMI 25.7
[2022-10-01] MEDS ORDERED: LACTATED RINGERS 1,000 ML IV SCH (07:03)
[2022-10-01] MEDS ORDERED: LIDOCAINE 1% (10MG/ML) FOR IV START INTRADERMA PRN (07:03)
[2022-10-01 07:25] VITALS: TEMP 97.4
[2022-10-01] MEDS ORDERED: PROPOFOL 10 MG/ML 20 ML VIAL IV ONE (07:30)
--- NOTE | 2022-10-01 07:34 | P.GSHP ---
History of Present Illness H&P Date: 10/01/22 CHIEF COMPLAINT: Colon screen HISTORY OF PRESENT ILLNESS: The patient is a 61-year-old female who presents for colon screen. Lower endoscopy was offered for further evaluation and management. PAST MEDICAL HISTORY: Please see list. PAST SURGICAL HISTORY: Please see list. MEDICATIONS: Please see list. ALLERGIES: Please see list. SOCIAL HISTORY: No illicit drug use FAMILY HISTORY: No reports of Crohn disease or ulcerative colitis. REVIEW OF ORGAN SYSTEMS: CONSTITUTIONAL: No reports of fevers or chills. PHYSICAL EXAM: VITAL SIGNS: Stable GENERAL: Well-developed pleasant in no acute distress. HEENT: No scleral icterus. Extraocular movements grossly intact. Moist buccal mucosa. NECK: Supple without lymphadenopathy. CHEST: Unlabored respirations. Equal bilateral excursions. CARDIOVASCULAR: Regular rate and rhythm. Distal 2+ pulses. ABDOMEN: Soft, nontender, nondistended. MUSCULOSKELETAL: No clubbing, cyanosis, or edema. ASSESSMENT: 1. Colon screen. PLAN: 1. Recommend proceeding with a lower endoscopy Past Medical History Past Medical History: Cancer, GERD/Reflux, Hyperlipidemia, Hypertension, Osteoarthritis (OA) Additional Past Medical History / Comment(s): left breast cancer with lumpectomy and radiation tx (2021)., hx heptatitis B (1977), back pain, hemorrhoids., has "chip" left breast., occasional heartburn. History of Any Multi-Drug Resistant Organisms: None Reported Past Surgical History: Heart Catheterization Additional Past Surgical History / Comment(s): Angioplasty-2016., left breast lumpectomy, colonoscopy Past Anesthesia/Blood Transfusion Reactions: No Reported Reaction Past Psychological History: Anxiety, Depression Smoking Status: Former smoker Past Alcohol Use History: Daily Additional Past Alcohol Use History / Comment(s): Quit smoking in 2014., hx of less than 1ppd, started smoking as teenager. Drinks 3 beers or 2 glasses of wine daily. Past Drug Use History: None Reported - Past Family History Mother Family Medical History: No Reported History Medications and Allergies Home Medications Medication Instructions Recorded Confirmed Type ALPRAZolam [Xanax] 0.25 mg PO DIRECTED PRN 03/28/15 09/25/22 History Benazepril HCl 40 mg PO QAM 03/28/15 09/25/22 History Multivitamins, Thera [Multivitamin] 1 tab PO DAILY 03/28/15 09/25/22 History Simvastatin [Zocor] 20 mg PO HS 03/28/15 10/01/22 History Aspirin 81 mg PO DAILY 03/15/21 09/25/22 History Atenolol/Chlorthalidone 1 tab PO QAM 03/15/21 10/01/22 History [Atenolol/Chlorthalidone 50-25] [place]-3 Fatty Acids [[place]-3] 1,000 mg PO DAILY 03/15/21 09/25/22 History Letrozole [Femara] 2.5 mg PO DAILY 10/17/21 10/01/22 History Ergocalciferol [Vitamin D2 (1250 50,000 unit PO QMONTHLY 09/25/22 10/01/22 History Mcg = 53794 Iu)] busPIRone HCL [Buspirone HCl] 5 mg PO TID PRN 09/25/22 09/25/22 History Allergies Allergy/AdvReac Type Severity Reaction Status Date / Time No Known Allergies Allergy Verified 10/01/22 07:04 Surgical - Exam Vital Signs Temp Pulse Resp BP Pulse Ox 97.4 F L 63 16 122/76 95 10/01/22 07:13 10/01/22 07:13 10/01/22 07:13 10/01/22 07:13 10/01/22 07:13
--- NOTE | 2022-10-01 08:03 | P.PCN ---
Date of Procedure: 10/01/22 Description of Procedure: PREOPERATIVE DIAGNOSIS: Family history malignant colon polyps Colonoscopy screening POSTOPERATIVE DIAGNOSIS: Tubular adenoma ascending colon Sigmoid diverticulosis, severe Pandiverticulosis OPERATION: Colonoscopy to the ileocecal valve and appendiceal orifice, cecum Colonoscopy with cold forceps biopsy SURGEON: Roxanne Hale MD. ANESTHESIA: MAC. INDICATIONS: The patient is an 61-year-old female who presents family history of malignant colon polyps. Last colonoscopy 11 years. Benefits and risks were described and informed consent was obtained. DESCRIPTION OF PROCEDURE: The patient had undergone PEG prep. The patient had been brought into the operating room and laid in the left lateral decubitus position. After adequate intravenous sedation, the rectum was examined with 2% lidocaine jelly. The prostate was unremarkable. No external hemorrhoids were encountered. The rectal tone was within normal limits. No lesions were palpated in the rectal vault. An Olympus colonoscope was advanced until the cecum, ileocecal valve and appendiceal orifice were clearly viewed. The prep was fair. Severe sigmoid diverticulosis was encountered. Pandiverticulosis present. Colonic polyps were found and removed. No evidence of focal colitis was found. Retroflexion of the scope demonstrated grade 1 internal hemorrhoids without active bleeding or inflammation. The colon was desufflated. The patient had tolerated the procedure well. Withdrawal time was over 6 minutes. FINDINGS: Aronchick preparation quality scale 1 (1-5) Internal hemorrhoids, grade 1 External hemorrhoids, grade 1. No arteriovenous malformations. Sigmoid diverticulosis, severe Pandiverticulosis Removal of 1 polyps: - Cold forceps biopsy at the ascending colon, 5 mm. No focal colitis. RECOMMENDATIONS: Repeat colonoscopy in 3 years, 2025 Plan - Discharge Summary New Discharge Prescriptions: Continue Simvastatin [Zocor] 20 mg PO HS Multivitamins, Thera [Multivitamin (formulary)] 1 tab PO DAILY Benazepril HCl 40 mg PO QAM ALPRAZolam [Xanax] 0.25 mg PO DIRECTED PRN PRN Reason: Anxiety [place]-3 Fatty Acids [[place]-3] 1,000 mg PO DAILY Atenolol/Chlorthalidone [Atenolol/Chlorthalidone 50-25] 1 tab PO QAM Letrozole [Femara] 2.5 mg PO DAILY Aspirin 81 mg PO DAILY Ergocalciferol [Vitamin D2 (1250 Mcg = 28107 Iu)] 50,000 unit PO QMONTHLY busPIRone HCL 5 mg PO TID PRN PRN Reason: Anxiety Discharge Medication List ALPRAZolam [Xanax] 0.25 mg PO DIRECTED PRN 03/28/15 [History] Benazepril HCl 40 mg PO QAM 03/28/15 [History] Multivitamins, Thera [Multivitamin (formulary)] 1 tab PO DAILY 03/28/15 [History] Simvastatin [Zocor] 20 mg PO HS 03/28/15 [History] Aspirin 81 mg PO DAILY 03/15/21 [History] Atenolol/Chlorthalidone [Atenolol/Chlorthalidone 50-25] 1 tab PO QAM 03/15/21 [History] [place]-3 Fatty Acids [[place]-3] 1,000 mg PO DAILY 03/15/21 [History] Letrozole [Femara] 2.5 mg PO DAILY 10/17/21 [History] Ergocalciferol [Vitamin D2 (1250 Mcg = 11661 Iu)] 50,000 unit PO QMONTHLY 09/25/22 [History] busPIRone HCL 5 mg PO TID PRN 09/25/22 [History] Follow up Appointment(s)/Referral(s): Roxanne Hale MD [STAFF PHYSICIAN] - As Needed Patient Instructions/Handouts: Diverticulosis Diet (GEN), Diverticulosis (DC) Activity/Diet/Wound Care/Special Instructions: Repeat colonoscopy 3 years, 2025 Discharge Disposition: HOME SELF-CARE
[2022-10-01 08:31] VITALS: BP 117/75; PULSE 54; RESP 16
== END 2022-10-01 08:47 | disposition home or self-care (01) ==
LOC: ORWHC2ENDO 06:43
PROVIDERS: ATTEND Surgery Plastic and Reconstructive Surgery
DX: Z12.11 Encounter for screening for malignant neoplasm of colon (principal); D12.2 Benign neoplasm of ascending colon; K57.30 Diverticulosis of large intestine without perforation or abscess without bleeding; K64.0 First degree hemorrhoids; K64.4 Residual hemorrhoidal skin tags; I10 Essential (primary) hypertension; E78.5 Hyperlipidemia, unspecified; M19.90 Unspecified osteoarthritis, unspecified site; Z79.82 Long term (current) use of aspirin; F32.A Depression, unspecified; F41.9 Anxiety disorder, unspecified; Z85.3 Personal history of malignant neoplasm of breast; Z85.89 Personal history of malignant neoplasm of other organs and systems; Z87.19 Personal history of other diseases of the digestive system; Z79.899 Other long term (current) drug therapy; Z79.811 Long term (current) use of aromatase inhibitors; Z87.891 Personal history of nicotine dependence; Z98.890 Other specified postprocedural states
CPT/HCPCS: 88305; 45380; J2704

== ENCOUNTER → 2022-12-25 | Outpatient (CLI) | payer BC ==
--- NOTE | 2022-12-25 10:41 | BD ---
EXAMINATION TYPE: Axial Bone Density DATE OF EXAM: 12/25/2022 CLINICAL HISTORY: 62 years old Female. ICD-10 CODE: M85.9 DISORDER OF BONE DENSITY Height: 64 Weight: 150.2 FRAX RISK QUESTIONS: Alcohol (3 or more units per day): no Family History (Parent hip fracture): no Glucocorticoids (More than 3mos): no History of Fracture in Adulthood: no Secondary Osteoporosis: 1. Type 1 Diabetes: no 2. Hyperthyroidism: no 3. Menopause before 45: no 4. Malnutrition: no 5. Chronic liver disease: no Rheumatoid Arthritis: no Current Tobacco Use: no RISK FACTORS HISTORY OF: Hip Fracture (Right/Left): no Spine Fracture: no History of Wrist Fracture: no Surgery to Spine/Hip(right/left)/Wrist (right/left): no Family History of Osteoporosis: no Active: no Diet low in dairy products/other sources of calcium: no Postmenopausal woman: yes Take estrogen and/or progesterone medications: no Lost more than 2 inches in height since high school: yes Frequent falls: no Poor Health: no Hyperparathyroidism: no Adrenal Insufficiency: no MEDICATIONS: Prednisone or other steroids: no Thyroid Medications:no Osteoporosis Medications: Femora How Long: past 2 years Additional Medications: Cholesterol Meds, BP Meds x2, Anxiety Meds, Multi Vit., Vit D monthly Additional History: Breast Ca. 2020 with radiation EXAM MEASUREMENTS: Bone mineral densitometry was performed using the Dot VN System. Bone mineral density as measured about the Lumbar spine is: ----- L1-L4(G/cm2): 0.996 T Score Values are as follows: ----- L1: -2.8 ----- L2: -1.3 ----- L3: -1.3 ----- L4: -1.2 ----- L1-L4: -1.5 Z Score Values are as follows: ----- L1: -1.4 ----- L2: 0.1 ----- L3: 0.1 ----- L4: 0.2 ----- L1-L4: -0.1 Bone mineral density has: decreased -0.9 % since study of: 12/24/2020 Bone mineral density about the R hip (g/cm2): 0.752 Bone mineral density about the L hip (g/cm2): 0.878 T Score values are as follows: -----R Neck: -2.2 -----L Neck: -1.4 -----R Total: -2.0 -----L Total: -1.0 Z Score values are as follows: -----R Neck: -0.9 -----L Neck: 0.0 -----R Total: -1.0 -----L Total: 0.0 Bone mineral density has: decreased -1.7 % since study of: 12/24/2020 FRAX%s: The graph provided illustrates a 11.5% chance for a major osteoporotic fx and a 1.9% chance f or the hips probability for fx in 10 years time. IMPRESSION: Osteopenia (T Score between -2.5 and -1). There is slightly increased risk of fracture and the patient may be considered for treatment. Re-Screen 2-5 years. NOTE: T-SCORE=SD OF THE YOUNG ADULT MEAN.
== END | disposition home or self-care (01) ==
LOC: RADBDWWP 09:59
PROVIDERS: ATTEND Internal Medicine Hematology & Oncology
DX: C50.812 Malignant neoplasm of overlapping sites of left female breast (principal); E78.5 Hyperlipidemia, unspecified; M81.0 Age-related osteoporosis without current pathological fracture; M85.89 Other specified disorders of bone density and structure, multiple sites; Z71.3 Dietary counseling and surveillance
CPT/HCPCS: 77080

== ENCOUNTER → 2023-03-02 | Outpatient (CLI) | payer BC ==
--- NOTE | 2023-03-02 11:07 | MM ---
Reason for Exam: Follow-up at short interval from prior study. Last mammogram was performed 1 year(s) and 1 month(s) ago. Patient History: Menarche at age 13. First Full-Term at age 19. Postmenopausal. Patient has history of breast feeding. Breast cancer, left, age 60. Previous chest radiation therapy at age 60. 06/11/2021, Lumpectomy on the Left side. 06/11/2021, Malignant Core Biopsy on the left side. 03/21/2021, Malignant Core Biopsy on the left side. Prior Study Comparison: 09/15/2017 Bilateral Screening Mammogram, [facility]. 10/29/2017 Left Diagnostic Mammogram, [facility]. 09/20/2018 Bilateral Diagnostic Mammogram, [facility]. 12/24/2020 Bilateral Screening Mammogram, [facility]. 01/15/2021 Left Diagnostic Mammogram, [facility]. 04/19/2021 Bilateral Diagnostic Breast MRI, [facility]. 01/31/2022 Bilateral MG 3D diag mammo w/cad KENDRA, [facility]. 08/04/2022 Left MG 3D diag mammo w/cad LT, [facility]. Tissue Density: There are scattered fibroglandular densities. Findings: Analyzed By CAD. Pattern appears stable. Multiple surgical clips are within the left breast. Stable rounded densities within the left breast. Benign vascular calcification is present bilaterally. No significant interval changes are evident. No suspicious groups of microcalcifications, spiculated or lobular masses, architectural distortion or other secondary signs of malignancy are mammographically apparent. Overall Assessment: Benign, BI-RAD 2 Management: Screening Mammogram of both breasts in 1 year. A negative mammogram report should not preclude additional follow up of suspicious palpable abnormalities. Patient should continue monthly self breast exam. A clinical breast exam by your physician is recommended on an annual basis and results should be correlated with mammographic findings. Electronically signed and approved by: Ryder Trammell D.O. Radiologis
== END | disposition home or self-care (01) ==
LOC: RADMAMWWP 09:34
PROVIDERS: ATTEND Surgery
DX: R92.323 Mammographic fibroglandular density, bilateral breasts (principal); Z78.0 Asymptomatic menopausal state; Z85.3 Personal history of malignant neoplasm of breast
CPT/HCPCS: 77062; 77066

== ENCOUNTER → 2023-04-16 | Outpatient (CLI) | payer BC ==
--- NOTE | 2023-04-16 10:40 | P.PN ---
Subjective Progress Note Date: 04/16/23 Principal diagnosis: stage I left breast invasive ductal cancer, 202009/05/22 Principal diagnosis: left breast stage I invasive ductal cancer, 06-11-2021 Stage IA invasive ductal left breast cancer, T1 N0 M0 ER/GA+HER-2-G1 Rosaline is a 60-year-old white female who is status post left breast lumpectomy and sentinel node biopsy on . 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 Margins were negative. Radiographs were reviewed with radiology who felt that the area of invasive cancer was most likely completely removed with stereo biopsy. radiation oncology reviewed: [place] [id number]. Patient is on Femora. Oncotype score: 0 bilateral mammogram 01-31-22 BIRAD 3 repeat left breast mammogram in 6 months to confirm post treatment stability left breast mammogram on 08-04-22 BIRAD 2 Is not complaining of any new lumps masses or nodules of concern in either breast. She is taking Femora. Patient started on a new anxiety medication this week by Laurita Villa in Dr. Frost's office. 04-16-23 62 year old female status post left breast lumpectoy and SNB on 06-11-21. 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 Margins were negative. Radiographs were reviewed with radiology who felt that the area of invasive cancer was most likely completely removed with stereo biopsy. Note Dr. Guardado 01-02-23 reviewed; on Letrazole Of any new lumps masses or nodules of concern in either breast. radiation oncology reviewed: [place] [id number]. Patient is on Femora. Oncotype score: 0 bilateral mammogram 03-02-23 BIRAD 2 Caffeine: 2 cups coffee/day nicotine: second hand smoke, not smoke in the house chocolate: occasional BCP: 2 years, stopped 40 years ago hormones: none Family history: maternal grandfather: colon cancer father: skin cancer Hormonal History: menarche: 12 , age at first : 21, breast fed: yes menopause: 46 BCP: 2 years in past hormones: none Surgical History: angioplasty ( baby aspirin daily) left breast lumpectomy and SNB Medical History: anxiety coronary artery disease HTN Social History: nicotine: none alcohol: beer weekly drugs: none - Constitutional Constitutional: Reports sweats, Denies chills - EENT Eyes: bilateral dry eye, denies blurred vision, denies pain Ears: bilateral: tinnitus, deny: decreased hearing Ears, nose, mouth and throat: Denies headache, Denies sore throat - Breasts Breasts: bilateral: as per HPI - Cardiovascular Comment: See crew leader every 6 months Cardiovascular: Reports as per HPI, Denies chest pain, Denies shortness of breath - Respiratory Respiratory: Reports cough - Gastrointestinal Gastrointestinal: Denies abdominal pain, Denies diarrhea, Denies nausea, Denies vomiting - Genitourinary (Female) Genitourinary: Denies dysuria, Denies hematuria - Menstruation Menstruation: Reports postmenopausal - Musculoskeletal Comment: back pain - Integumentary Integumentary: Denies pruritus, Denies rash - Neurological Neurological: Reports numbness, Denies weakness - Psychiatric Psychiatric: Reports anxiety - Endocrine Endocrine: Denies fatigue, Denies weight change - Hematologic/Lymphatic Hematologic/Lymphatic: Reports as per HPI - Allergic/Immunologic Allergic/Immunologic: Reports as per HPI Objective - Constitutional General appearance: Present: cooperative - EENT Eyes: Present: EOMI ENT: Present: hearing grossly normal - Neck Neck: Present: normal ROM - Respiratory Respiratory: bilateral: CTA - Cardiovascular Rhythm: regular Heart sounds: normal: S1, S2 - Gastrointestinal General gastrointestinal: Present: soft - Integumentary Integumentary: Present: normal turgor - Musculoskeletal Musculoskeletal: Present: gait normal - Psychiatric Psychiatric: Present: A&O x's 3, appropriate affect, intact judgment & insight - Additional findings Additional findings: Breast Exam: BRA: 38B Inspection: Postop changes left breast; Palpation: Right breast: Multi-positional exam fibrocystic changes no dominant masses or nodules of concern; postop and post radiation changes noted Right axilla: No adenopathy of concern Left breast: Multiple positional exam fibrocystic changes no dominant masses or nodules of concern Left axilla no adenopathy of concern Assessment and Plan Assessment: Impression: anxiety coronary artery disease HTN Patient status post left breast lumpectomy for stage IA invasive ductal carcinoma, no evidence of recurrence Patient presently on Femara has completed radiation therapy Bilateral mammogram on 03-02-23 BIRAD 2 Plan: Continue Femora bilateral mammogram 2024 follow up 6 months Continue to follow with medical and radiation oncology If patient feels anything of concern she will see me sooner Cc:
[2023-04-16 11:40] VITALS: BP 144/83; PULSE 51; RESP 15; TEMP 97.8
== END ==
LOC: WWCWWP 09:31
PROVIDERS: ATTEND Surgery
DX: F41.9 Anxiety disorder, unspecified (principal); I25.10 Atherosclerotic heart disease of native coronary artery without angina pectoris; I10 Essential (primary) hypertension; Z85.3 Personal history of malignant neoplasm of breast; Z98.890 Other specified postprocedural states; Z92.3 Personal history of irradiation; Z79.82 Long term (current) use of aspirin; Z79.899 Other long term (current) drug therapy; Z87.891 Personal history of nicotine dependence

== ENCOUNTER → 2023-10-30 | Outpatient (CLI) | payer BC ==
[2023-10-30 12:54] VITALS: BP 136/84; PULSE 58; RESP 16; TEMP 97.9
--- NOTE | 2023-10-30 13:13 | P.PN ---
Subjective Progress Note Date: 10/30/23 10-30-23 Principal diagnosis: left breast stage I invasive ductal cancer, 06-11-2021 Stage IA invasive ductal left breast cancer, T1 N0 M0 ER/NV+HER-2-G1 Rosaline is a 40-year-old white female who is status post left breast lumpectomy and sentinel node biopsy on . 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 Margins were negative. Radiographs were reviewed with radiology who felt that the area of invasive cancer was most likely completely removed with stereo biopsy. radiation oncology reviewed: [place] [address] [place] [id number]. Patient is on Femora. Oncotype score: 0 bilateral mammogram 03-02-23 BIRAD 2 Is not complaining of any new lumps masses or nodules of concern in either breast. She is taking Femora. Patient started on a new anxiety medication this week by Laurita Villa in Dr. Frost's office. note medical oncology reviewed: 07-22-23 patient on letrazole bone density 12-25-22 osteopenia, vitamin D and calcium in MVI Caffeine: 2 cups coffee/day nicotine: second hand smoke, not smoke in the house chocolate: occasional BCP: 2 years, stopped 40 years ago hormones: none Family history: maternal grandfather: colon cancer father: skin cancer Hormonal History: menarche: 12 , age at first : 21, breast fed: yes menopause: 46 BCP: 2 years in past hormones: none Surgical History: angioplasty ( baby aspirin daily) left breast lumpectomy and SNB Medical History: anxiety coronary artery disease HTN Social History: nicotine: none alcohol: beer weekly drugs: none - Constitutional Constitutional: Reports sweats, Denies chills - EENT Eyes: bilateral dry eye, denies blurred vision, denies pain Ears: bilateral: tinnitus, deny: decreased hearing Ears, nose, mouth and throat: Denies headache, Denies sore throat - Breasts Breasts: bilateral: as per HPI - 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 Cardiovascular: Reports as per HPI, Denies chest pain, Denies shortness of breath - Respiratory Respiratory: Reports cough - Gastrointestinal Gastrointestinal: Denies abdominal pain, Denies diarrhea, Denies nausea, Denies vomiting - Genitourinary (Female) Genitourinary: Denies dysuria, Denies hematuria - Menstruation Menstruation: Reports postmenopausal - Musculoskeletal Comment: back pain - Integumentary Integumentary: Denies pruritus, Denies rash - Neurological Neurological: Reports numbness, Denies weakness - Psychiatric Psychiatric: Reports anxiety - Endocrine Endocrine: Denies fatigue, Denies weight change - Hematologic/Lymphatic Hematologic/Lymphatic: Reports as per HPI - Allergic/Immunologic Allergic/Immunologic: Reports as per HPI Objective - Vital Signs Vital signs: Vital Signs Temp 97.9 F 10/30/23 12:50 Pulse 58 L 10/30/23 12:50 Resp 16 10/30/23 12:50 BP 136/84 10/30/23 12:50 Pulse Ox 96 10/30/23 12:50 FiO2 Intake & Output 10/29/23 10/30/23 10/30/23 18:59 06:59 18:59 Weight 69.4 kg - Constitutional General appearance: Present: cooperative - EENT Eyes: Present: EOMI ENT: Present: hearing grossly normal - Neck Neck: Present: normal ROM - Respiratory Respiratory: bilateral: CTA - Cardiovascular Heart sounds: normal: S1, S2 - Integumentary Integumentary: Present: normal turgor - Musculoskeletal Musculoskeletal: Present: gait normal - Psychiatric Psychiatric: Present: A&O x's 3, appropriate affect, intact judgment & insight - Additional findings Additional findings: Breast Exam: BRA: 38B Inspection: Postop changes left breast; Palpation: Right breast: Multi-positional exam fibrocystic changes no dominant masses or nodules of concern; postop and post radiation changes noted Right axilla: No adenopathy of concern Left breast: Multiple positional exam fibrocystic changes no dominant masses or nodules of concern Left axilla no adenopathy of concern Assessment and Plan Assessment: Impression: anxiety coronary artery disease HTN Patient status post left breast lumpectomy for stage IA invasive ductal carcinoma, no evidence of recurrence Patient presently on letrazole/Femara has completed radiation therapy Plan: Continue Femora bilateral mammogram in February 2024 follow up after mammogram Continue to follow with medical and radiation oncology If patient feels anything of concern she will see me sooner Cc:
== END ==
LOC: WWCWWP 12:16
PROVIDERS: ATTEND Surgery
DX: Z48.817 Encounter for surgical aftercare following surgery on the skin and subcutaneous tissue (principal); I25.10 Atherosclerotic heart disease of native coronary artery without angina pectoris; F41.9 Anxiety disorder, unspecified; I10 Essential (primary) hypertension; Z92.3 Personal history of irradiation; Z85.3 Personal history of malignant neoplasm of breast; Z77.22 Contact with and (suspected) exposure to environmental tobacco smoke (acute) (chronic); Z79.899 Other long term (current) drug therapy

== ENCOUNTER → 2024-03-07 | Outpatient (CLI) | payer MEDICARE ==
--- NOTE | 2024-03-07 12:09 | MM ---
Reason for Exam: Screening (asymptomatic). Last screening mammogram was performed 12 month(s) ago. Patient History: Menarche at age 13. First Full-Term at age 19. Postmenopausal. Patient has history of breast feeding. Breast cancer, left, age 60. Previous chest radiation therapy at age 60. 06/11/2021, Lumpectomy on the Left side. 06/11/2021, Malignant Core Biopsy on the left side. 03/21/2021, Malignant Core Biopsy on the left side. Prior Study Comparison: 01/31/2022 Bilateral MG 3D diag mammo w/cad KENDRA, [facility]. 08/04/2022 Left MG 3D diag mammo w/cad LT, [facility]. 03/02/2023 Bilateral MG 3D diag mammo w/cad KENDRA, [facility]. Tissue Density: There are scattered areas of fibroglandular density. Analyzed By CAD. Overall Assessment: Benign, BI-RAD 2 Management: Diagnostic Mammogram of both breasts in 1 year. Electronically signed and approved by: Jaime Dang M.D.
== END | disposition home or self-care (01) ==
LOC: RADMAMWWP 10:04
PROVIDERS: ATTEND Surgery
DX: Z12.31 Encounter for screening mammogram for malignant neoplasm of breast (principal); Z78.0 Asymptomatic menopausal state; Z85.3 Personal history of malignant neoplasm of breast; R92.323 Mammographic fibroglandular density, bilateral breasts
CPT/HCPCS: 77063; 77067